=== PATIENT | female | born 1955 | race Caucasian/White ===

== ENCOUNTER 2020-05-07 09:52 | Emergency (ER) | payer BC ==
[~2020-05-07] VITALS: Ht 160 cm; Wt 65.8 kg
[~2020-05-07 09:52] MED LIST: BLOOD PRESSURE PILL; FLEXERIL PO; NORCO 5-325 TA1 EACH PO; SYNTHROID300 MCG PO
[2020-05-07] MEDS ORDERED: LISINOPRIL2.5 MG PO (10:06)
[2020-05-07] MEDS ORDERED: SYNTHROID88 MC1 PO (10:06)
[2020-05-07 11:03] LABS: ABSOLUTE LYMPHOCYTES 0.9 thou/uL (0.8-5.3); ABSOLUTE MONOCYTES 0.3 thou/uL (0.0-1.2); ABSOLUTE NEUTROPHILS 5.6 thou/uL (1.6-8.1); BASOPHILS 0.4 %; EOSINOPHILS 0.2 %; HEMATOCRIT 41.9 % (37.0-47.0); HEMOGLOBIN 13.7 gm/dL (12.0-15.0); LYMPHOCYTES 13.8 %; MCH 29.8 pg (26.0-34.0); MCHC 32.7 g/dL (28.0-37.0); MONOCYTES 3.9 %; MPV 6.4 fl. (7.2-11.1); NUCLEATED RBCS 0 /100WBC; PLATELET COUNT* 286 thou/uL (150-400); POLYS 81.7 %; RBC 4.61 mil/uL (4.20-5.00); RDW-CV 12.2 % (10.5-14.5); WBC 6.9 thou/uL (4.0-11.0)
[2020-05-07 11:11] LABS: CREATININE 0.8 mg/dL (0.6-1.3); POTASSIUM 4.5 mmol/L (3.5-5.1)
[2020-05-07 11:15] LABS: ALBUMIN 3.6 g/dL (3.4-5.0); TOTAL BILIRUBIN 0.6 mg/dL (<0.1-1.0); TOTAL PROTEIN 7.7 g/dL (6.4-8.2)
[2020-05-07 12:04] LABS: URINE BILIRUBIN NEGATIVE (Negative); URINE BLOOD NEGATIVE (Negative); URINE CLARITY CLEAR; URINE COLOR YELLOW; URINE GLUCOSE-RANDOM NEGATIVE (Negative); URINE KETONES NEGATIVE (Negative); URINE LEUKOCYTES-REFLEX NEGATIVE (Negative); URINE NITRITE-REFLEX NEGATIVE (Negative); URINE PROTEIN NEGATIVE (Negative); URINE SPECIFIC GRAVITY <= 1.005 (1.005-1.030); URINE UROBILINOGEN 0.2 E.U./dl (0.2-1.0)
[2020-05-07] MEDS ORDERED: ZOFRAN ODT4 MG PO (12:34)
[2020-05-07] MEDS ORDERED: MEDROLDOSEPACK PO (12:34)
[2020-05-07] MEDS ORDERED: MECLIZINE HCL25 MG PO (12:34)
[2020-05-07] MEDS ORDERED: DOXYCYCLINE 10100 MG PO (12:34)
[2020-05-07 13:14] VITALS: BP 132/71
--- NOTE | 2020-05-07 16:59 | EKG ---
[place] [address] ELECTROCARDIOGRAM REPORT Name: MARTELL GUSTAFSON Room: [facility]#: [id number] Admission: 05/07/20 Attend Phys: Discharge: 05/07/20 Date of : 55 Date of Service: 05/07/201106 Report #: [id number] THIS REPORT FOR: //name// [facility] ED Test Date: 2020-05-07 Test Time: 11:07:11 Pat Name: MARTELL GUSTAFSON Department: Room: Gender: Patient Accounts Specialist: [facility] : 1955 Requested By: Tessa Hernandez Order Number: [id number] MD: Du Bermeo Measurements Intervals [place] Rate: 85 P: 44 [place]: 150 QRS: 30 QRSD: 87 T: 31 QT: 348 QTc: 414 Interpretive Statements Sinus rhythm No previous ECG available for comparison Electronically Signed On 05-07-2020 16:59:46 OPERATING ROOM SURGICAL TECHNOLOGIST by Du Bermeo [email or web address] <ELECTRONICALLY SIGNED> By: Du Bermeo MD, [facility] 05/07/20 1659 06 Du Bermeo MD, FACC /EPI
== END 2020-05-07 13:14 | disposition home or self-care (01) ==
LOC: M.ERS 09:52
PROVIDERS: Nurse Practitioner Family
DX: H81.10 Benign paroxysmal vertigo, unspecified ear (principal); Z20.828 Contact with and (suspected) exposure to other viral communicable diseases; J18.9 Pneumonia, unspecified organism; I10 Essential (primary) hypertension; Z90.710 Acquired absence of both cervix and uterus

== ENCOUNTER 2020-11-19 13:32 | Emergency (ER) | payer BC ==
[~2020-11-19] VITALS: Ht 160 cm; Wt 65.8 kg
[~2020-11-19 13:32] MED LIST changes: +DOXYCYCLINE 10100 MG PO; +LISINOPRIL2.5 MG PO; +MECLIZINE HCL25 MG PO; +MEDROLDOSEPACK PO; +SYNTHROID88 MC1 PO; +ZOFRAN ODT4 MG PO
[2020-11-19] MEDS ORDERED: XARELTO1 EACH PO (15:51)
[2020-11-19 16:13] VITALS: BP 126/65
== END 2020-11-19 16:15 | disposition home or self-care (01) ==
LOC: M.ERS 13:32
DX: I82.411 Acute embolism and thrombosis of right femoral vein (principal); I10 Essential (primary) hypertension; E89.0 Postprocedural hypothyroidism; Z87.891 Personal history of nicotine dependence; Z90.710 Acquired absence of both cervix and uterus

== ENCOUNTER 2020-12-11 15:33 | Emergency (ER) | payer OTHER ==
[~2020-12-11] VITALS: Ht 162.6 cm; Wt 66.7 kg
[~2020-12-11 15:33] MED LIST changes: +XARELTO1 EACH PO
[2020-12-11] MEDS ORDERED: XARELTO20 MG PO (15:43)
[2020-12-11 16:19] LABS: ABSOLUTE BASOPHILS 0.1 thou/uL (0.0-0.2); ABSOLUTE EOSINOPHILS 0.1 thou/uL (0.0-0.7); ABSOLUTE LYMPHOCYTES 2.1 thou/uL (0.8-5.3); ABSOLUTE MONOCYTES 0.5 thou/uL (0.0-1.2); ABSOLUTE NEUTROPHILS 4.3 thou/uL (1.6-8.1); BASOPHILS 1.2 %; EOSINOPHILS 1.2 %; HEMATOCRIT 38.5 % (37.0-47.0); HEMOGLOBIN 13.2 gm/dL (12.0-15.0); MCH 30.9 pg (26.0-34.0); MCHC 34.3 g/dL (28.0-37.0); MONOCYTES 6.9 %; MPV 6.6 fl. (7.2-11.1); NUCLEATED RBCS 0 /100WBC; PLATELET COUNT* 298 thou/uL (150-400); POLYS 60.7 %; RBC 4.28 mil/uL (4.20-5.00); RDW-CV 12.9 % (10.5-14.5)
[2020-12-11 16:30] LABS: CALCIUM 9.3 mg/dL (8.5-10.1); CREATININE 0.9 mg/dL (0.6-1.3); POTASSIUM 4.1 mmol/L (3.5-5.1)
[2020-12-11 16:32] LABS: TOTAL BILIRUBIN 0.5 mg/dL (<0.1-1.0); TOTAL PROTEIN 8.1 g/dL (6.4-8.2)
[2020-12-11 18:30] VITALS: BP 148/78
== END 2020-12-11 18:31 | disposition home or self-care (01) ==
LOC: M.ERS 15:33
PROVIDERS: Family Medicine
DX: I26.99 Other pulmonary embolism without acute cor pulmonale (principal); F17.210 Nicotine dependence, cigarettes, uncomplicated; I10 Essential (primary) hypertension; Z79.2 Long term (current) use of antibiotics; Z90.710 Acquired absence of both cervix and uterus; Z90.89 Acquired absence of other organs